=== PATIENT | female | born 1975 | race Caucasian/White ===

== ENCOUNTER 2021-11-12 09:01 | Outpatient (CLI) | payer BC ==
[2021-11-12] MEDS ORDERED: Iopamidol 300 61% 100 ML VIAL FS ONE (12:03)
== END 2021-11-12 09:02 | disposition home or self-care (01) ==
LOC: CSHCT 09:01
PROVIDERS: ATTEND Specialist
DX: J35.01 Chronic tonsillitis (principal)
CPT/HCPCS: 70491

== ENCOUNTER 2022-05-09 14:27 | Outpatient (CLI) | payer BC | END 2022-05-09 14:28 | disposition home or self-care (01) | LOC: CSHMRI 14:27 | PROVIDERS: ATTEND Family Medicine | DX: S83.207A Unspecified tear of unspecified meniscus, current injury, left knee, initial encounter (principal); S83.242A Other tear of medial meniscus, current injury, left knee, initial encounter; S83.282A Other tear of lateral meniscus, current injury, left knee, initial encounter; M71.22 Synovial cyst of popliteal space [Baker], left knee; M25.462 Effusion, left knee; M65.9 Synovitis and tenosynovitis, unspecified ==

== ENCOUNTER 2024-06-06 15:30 | Emergency (ER) | payer BC ==
[2024-06-06] MEDS ORDERED: AFRIN NASAL MIST 15 ML BOT ONE (16:26)
== END 2024-06-06 19:12 | disposition home or self-care (01) ==
LOC: CSHERS 15:30
DX: S00.33XA Contusion of nose, initial encounter (principal); X50.1XXA Overexertion from prolonged static or awkward postures, initial encounter
CPT/HCPCS: 70450; 70486